=== PATIENT | female | born 1940 | race Caucasian/White ===

== ENCOUNTER 2017-08-16 10:50 | Inpatient (IN) | payer BC ==
[2017-08-16] MEDS ORDERED: ALPRAZolam 0.5 MG TABLET PO (14:15)
[2017-08-16 14:52] LABS: ADD MAN DIFF? NO
[2017-08-16 14:58] LABS: BASO # 0.1 x10^3/uL (0.0-0.2); BASO % 2 % (0-3); EOS # 0.1 x10^3/uL (0.0-0.7); EOS % 2 % (0-3); LYMPH # 1.5 x10^3/uL (1.0-4.8); LYMPH % 35 % (24-48); MEAN CORPUSCULAR HEMOGLOBIN 15 pg (25-35); MEAN CORPUSCULAR HGB CONC 28 g/dL (31-37); MEAN CORPUSCULAR VOLUME 54 fL (79-100); MONO # 0.3 x10^3/uL (0.0-1.1); MONO % 8 % (0-9); NEUT # 2.4 x10^3uL (1.8-7.7); NEUT % 54 % (31-73); PLATELET COUNT 374 x10^3/uL (140-400); RED BLOOD COUNT 3.48 x10^6/uL (3.50-5.40); RED CELL DISTRIBUTION WIDTH 21.6 % (11.5-14.5); WHITE BLOOD COUNT 4.4 x10^3/uL (4.0-11.0)
[2017-08-16] MEDS: OMEGA-3 FATTY ACIDS/FISH OIL 1,000 MG CAPSULE. PO (15:00)
[2017-08-16] MEDS: CALCIUM CARB/VIT D3 500/200 TABLET. PO (15:00)
[2017-08-16] MEDS: hydroCHLOROthiazide 12.5 MG CAPSULE PO (15:00)
[2017-08-16 15:02] LABS: HEMOGLOBIN 5.3 g/dL (12.0-15.5)
[2017-08-16 15:05] LABS: INR 1.1 (0.8-1.1); PROTHROMBIN TIME PATIENT 13.2 SEC (11.7-14.0)
[2017-08-16 15:07] LABS: RETIC COUNT 2.1 % (0.5-2.5)
[2017-08-16 15:15] LABS: ALBUMIN 4.2 g/dL (3.4-5.0); ALBUMIN/GLOBULIN RATIO 1.3 (1.0-1.7); ALK PHOS 47 U/L (46-116); ALT (SGPT) 18 U/L (14-59); ANION GAP 11 (6-14); AST (SGOT) 11 U/L (15-37); BLOOD UREA NITROGEN 26 mg/dL (7-20); BUN/CREATININE RATIO 17 (6-20); CALCIUM 9.2 mg/dL (8.5-10.1); CARBON DIOXIDE 26 mmol/L (21-32); CHLORIDE 105 mmol/L (98-107); CREATININE 1.5 mg/dL (0.6-1.0); GFR 33.9; GLUCOSE 90 mg/dL (70-99); POTASSIUM 3.6 mmol/L (3.5-5.1); SODIUM 142 mmol/L (136-145); TOTAL BILIRUBIN 0.6 mg/dL (0.2-1.0); TOTAL PROTEIN 7.4 g/dL (6.4-8.2)
[2017-08-16] MEDS: PANTOPRAZOLE 40 MG TABLET.DR. PO (16:20)
[2017-08-16 16:26] LABS: ANISOCYTOSIS MOD; HYPOCHROMIA MARKED; MICROCYTOSIS MARKED; OVALOCYTES FEW; PLT ESTIMATE ADEQUATE (ADEQUATE); POLYCHROMASIA SLIGHT
[2017-08-16 16:58] LABS: % SAT IRON 2 % (15-34); IRON,SERUM 8 ug/dL (50-170)
[2017-08-16 17:47] LABS: IMMEDIATE SPIN CROSSMATCH 1 2
[2017-08-16 17:51] LABS: VITAMIN-B12 897 pg/mL (247-911)
[2017-08-16 18:25] LABS: FOLATE > 24.00 ng/ml (3.2-20.0)
[2017-08-16] MEDS: LATANOPROST 0.005% OPHTH SOLUTION 2.5ML BOTTLE. OU (20:30)
[2017-08-16] MEDS: DORZOLAMIDE 2% OPHTH SOLUTION 10ML BOTTLE. OU (20:31)
[2017-08-16] MEDS: TIMOLOL 0.5% OPHTH SOLUTION 5ML BOTTLE. OU (20:31)
[2017-08-16] MEDS ORDERED: DORZOLAMIDE/TIMOLOL 2%/0.5% OPHTH SOLUTION 10ML BOTTLE. OU (21:00)
[2017-08-17 03:20] LABS: HEMATOCRIT 25.7 % (36.0-47.0); MEAN CORPUSCULAR HEMOGLOBIN 20 pg (25-35); MEAN CORPUSCULAR HGB CONC 31 g/dL (31-37); MEAN CORPUSCULAR VOLUME 62 fL (79-100); PLATELET COUNT 315 x10^3/uL (140-400); RED BLOOD COUNT 4.12 x10^6/uL (3.50-5.40); RED CELL DISTRIBUTION WIDTH 30.8 % (11.5-14.5); WHITE BLOOD COUNT 4.7 x10^3/uL (4.0-11.0)
[2017-08-17] MEDS: IV RINGERS,LACTATED 1000ML 1,000 ML IV (06:32)
[2017-08-17] MEDS ORDERED: MIDAZOLAM HCL/PF 2 MG/2 ML VIAL. IV (06:45)
[2017-08-17] MEDS ORDERED: LIDOCAINE 1% PF 2 ML VIAL. ID (06:45)
[2017-08-17] MEDS ORDERED: fentaNYL PF VIAL 100 MCG/2 ML VIAL IV ×2 (06:45)
[2017-08-17] MEDS ORDERED: LIDOCAINE 2% PF Vial for OR 5 ML VIAL. (07:49)
[2017-08-17] MEDS ORDERED: PROPOFOL 20 ML IV (07:49)
[2017-08-17] MEDS: DORZOLAMIDE 2% OPHTH SOLUTION 10ML BOTTLE. OU (09:00)
[2017-08-17] MEDS: hydroCHLOROthiazide 12.5 MG CAPSULE PO (09:00)
[2017-08-17] MEDS: CALCIUM CARB/VIT D3 500/200 TABLET. PO (09:00)
[2017-08-17] MEDS: OMEGA-3 FATTY ACIDS/FISH OIL 1,000 MG CAPSULE. PO (09:00)
[2017-08-17] MEDS: TIMOLOL 0.5% OPHTH SOLUTION 5ML BOTTLE. OU (09:00)
[2017-08-17] MEDS: PANTOPRAZOLE 40 MG TABLET.DR. PO (09:02)
[2017-08-17] MEDS: FLUCONAZOLE 100 MG TABLET. PO (09:06)
[2017-08-17] MEDS ORDERED: NON FORMULARY ITEM (Garlic 1,000 MG) PO (10:00)
[2017-08-17 12:19] LABS: HEMOGLOBIN 8.6 g/dL (12.0-15.5); MEAN CORPUSCULAR HEMOGLOBIN 19 pg (25-35); MEAN CORPUSCULAR HGB CONC 31 g/dL (31-37); MEAN CORPUSCULAR VOLUME 62 fL (79-100); PLATELET COUNT 366 x10^3/uL (140-400); RED BLOOD COUNT 4.48 x10^6/uL (3.50-5.40); RED CELL DISTRIBUTION WIDTH 30.2 % (11.5-14.5); WHITE BLOOD COUNT 5.7 x10^3/uL (4.0-11.0)
== END 2017-08-17 14:41 | disposition home or self-care (01) | DRG 812 ==
LOC: 5 NORTH 10:50
PROC: 0DB58ZX Excision of Esophagus, Via Natural or Artificial Opening Endoscopic, Diagnostic (ICD-10-PCS; principal; 2017-08-17 07:30)
PROC: 30233N1 Transfusion of Nonautologous Red Blood Cells into Peripheral Vein, Percutaneous Approach (ICD-10-PCS; 2017-08-17 08:00)
DX: D50.9 Iron deficiency anemia, unspecified (principal); B37.81 Candidal esophagitis; N18.3 Chronic kidney disease, stage 3 (moderate); H40.9 Unspecified glaucoma; I12.9 Hypertensive chronic kidney disease with stage 1 through stage 4 chronic kidney disease, or unspecified chronic kidney disease; Z79.82 Long term (current) use of aspirin; Z80.3 Family history of malignant neoplasm of breast; Z83.3 Family history of diabetes mellitus; Z90.710 Acquired absence of both cervix and uterus
CPT/HCPCS: 36415; 80053; 82607; 82746; 83540; 83550; 85025; 85027; 85045; 85610; 86850; 86900; 86901; 86920; J2704; J7120; P9016

== ENCOUNTER 2019-12-04 15:32 | Inpatient (IN) | payer BC ==
[~2019-12-04] VITALS: Ht 157.5 cm; Wt 77.6 kg
[~2019-12-04 15:32] MED LIST: CALC-45 PO; DORZ10DR7 EACHEYE; GARL10002 PO; HYDR12.575 PO; LATA2.5D3 EACHEYE; OMEG1CAP38 PO
[2019-12-04 16:00] VITALS: BP 176/87
[2019-12-04] MEDS ORDERED: GLUC1CAP18 PO (16:15)
[2019-12-04] MEDS ORDERED: ACET500T68 PO (16:17)
[2019-12-04] MEDS ORDERED: VIT1TABL34 PO (16:17)
[2019-12-04] MEDS ORDERED: MULT-505 PO (16:18)
[2019-12-04] MEDS ORDERED: ACETAMINOPHEN 500 MG TABLET PO PRN (18:00)
[2019-12-04 19:00] VITALS: BP 179/72
[2019-12-04 19:18] LABS: BASO # 0.1 x10^3/uL (0.0-0.2); BASO % 2 % (0-3); EOS # 0.2 x10^3/uL (0.0-0.7); EOS % 4 % (0-3); LYMPH # 1.4 x10^3/uL (1.0-4.8); LYMPH % 28 % (24-48); MEAN CORPUSCULAR HEMOGLOBIN 17 pg (25-35); MEAN CORPUSCULAR HGB CONC 29 g/dL (31-37); MEAN CORPUSCULAR VOLUME 60 fL (79-100); MONO # 0.5 x10^3/uL (0.0-1.1); MONO % 9 % (0-9); NEUT # 2.8 x10^3/uL (1.8-7.7); NEUT % 56 % (31-73); PLATELET COUNT 399 x10^3/uL (140-400); RED BLOOD COUNT 3.81 x10^6/uL (3.50-5.40); RED CELL DISTRIBUTION WIDTH 22.6 % (11.5-14.5)
[2019-12-04 19:25] LABS: PROTHROMBIN TIME PATIENT 12.6 SEC (11.7-14.0)
[2019-12-04 19:33] LABS: HEMOGLOBIN 6.6 g/dL (12.0-15.5)
[2019-12-04 19:52] LABS: PLT ESTIMATE ADEQUATE (ADEQUATE)
[2019-12-04 19:58] LABS: ANISOCYTOSIS MOD; HYPOCHROMIA MARKED; MICROCYTOSIS MARKED; POIKILOCYTOSIS SLIGHT
[2019-12-04 19:59] LABS: OVALOCYTES PRESENT; SCHISTOCYTES OCC
[2019-12-04] MEDS ORDERED: LATANOPROST 0.005% OPHTH SOLUTION 2.5ML BOTTLE. OU SCH (21:00)
[2019-12-04] MEDS: MULTIVITAMIN I-VITE TABLET. PO SCH (21:00)
[2019-12-04] MEDS: TIMOLOL 0.5% OPHTH SOLUTION 5ML BOTTLE. OU SCH (21:00)
[2019-12-04] MEDS: DORZOLAMIDE 2% OPHTH SOLUTION 10ML BOTTLE. OU SCH (21:00)
[2019-12-04 22:03] VITALS: BP 140/60
[2019-12-04 22:18] VITALS: BP 145/60
[2019-12-04 23:00] VITALS: BP 156/55
[2019-12-04 23:18] VITALS: BP 143/69
[2019-12-05] VITALS (15 sets, daily range): BP systolic 133–176; BP diastolic 49–95
--- NOTE | 2019-12-05 00:39 | NUR ---
Pt tolerated 1 unit of blood. No rxn noted.
[2019-12-05 04:59] LABS: HEMATOCRIT 24.5 % (36.0-47.0); HEMOGLOBIN 7.3 g/dL (12.0-15.5); RED BLOOD COUNT 3.85 x10^6/uL (3.50-5.40); RED CELL DISTRIBUTION WIDTH 25.9 % (11.5-14.5); WHITE BLOOD COUNT 4.7 x10^3/uL (4.0-11.0)
--- NOTE | 2019-12-05 07:49 | PDOC ---
Provider Note Provider Note hb up 7.3 after 1 u- source of loss ?, 2018 was on asa and anemia resolved but has recurred- gi consult to plan egd as op, 1 more u prbc, then can dc and follow on iron Justifications for Admission Other Justification BELEN ACOSTA MD Dec 05, 2019 07:49
[2019-12-05] MEDS ORDERED: NON FORMULARY ITEM (Gluc Hcl/Csa/Coll Hy/Hyalur Ac (Glucosamine Chondroitin Cap) 1 EACH) PO SCH (09:00)
[2019-12-05] MEDS: MULTIVITAMIN I-VITE TABLET. PO SCH (09:00)
[2019-12-05] MEDS ORDERED: hydroCHLOROthiazide 12.5 MG CAPSULE PO SCH (09:00)
[2019-12-05] MEDS ORDERED: OMEGA-3 FATTY ACIDS/FISH OIL 1,000 MG CAPSULE. PO SCH (09:00)
[2019-12-05] MEDS ORDERED: MULTIVITAMIN with MINERAL TABLET. PO SCH (09:00)
--- NOTE | 2019-12-05 09:26 | PDOC2 ---
GI CONSULT Date of Service: DATE: 12/05/19 TIME: 09:26 Reason For Consult: recurring anemia HPI: HPI: Pleasant 79 y/o female directly admitted by Dr. Echeverria. Has been feeling fine but noted to be pale at office visit. H/o ADDISON - advised to stop iron awhile ago, now anemic requiring transfusion w/o obvious bleeding. 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 Colonoscopy 2018: diverticulosis. Ferritin low this time. B12 okay in 2018. Denies reflux, dysphagia, n/v, abd pain, diarrhea, constipation, hematemesis, hematochezia, and melena. Has lost 6 pounds due to being very active at home - care for her , works in the yard, etc. S/p cholecystectomy. Hepatic steatosis on past imaging. No pancreas or PUD history. No NSAIDs. Says the plan is to resume iron and for another transfusion and then to go home - she wants to go because she needs to get back to her . Ate breakfast this morning. PMH: PMH: HTN, glaucoma, arthritis FH: Family History: Cancer (breast), DM, Other Social History: Smoke: Quit ([place], [place]) ALCOHOL: none ROS: GEN: Denies fevers, chills, sweats HEENT: Denies blurred vision, sore throat CV: Denies chest pain RESP: Denies shortness of air, cough GI: Per HPI : Denies hematuria, dysuria ENDO: +weight loss NEURO: Denies confusion, dizziness MSK: Denies weakness, joint pain/swelling SKIN: Denies jaundice, pruritus Vitals: Vitals: Vital Signs Date Time Temp Pulse Resp B/P (MAP) Pulse Ox O2 Delivery O2 Flow Rate FiO2 12/05/19 07:00 98.0 77 17 147/68 (94) 98 Room Air 98.0 Labs: Labs: Laboratory Tests Test 12/04/19 18:35 12/05/19 04:05 White Blood Count 5.0 x10^3/uL (4.0-11.0) 4.7 x10^3/uL (4.0-11.0) Red Blood Count 3.81 x10^6/uL (3.50-5.40) 3.85 x10^6/uL (3.50-5.40) Hemoglobin 6.6 g/dL (12.0-15.5) 7.3 g/dL (12.0-15.5) Hematocrit 23.0 % (36.0-47.0) 24.5 % (36.0-47.0) Mean Corpuscular Volume 60 fL (79-100) 64 fL (79-100) Mean Corpuscular Hemoglobin 17 pg (25-35) 19 pg (25-35) Mean Corpuscular Hemoglobin Concent 29 g/dL (31-37) 30 g/dL (31-37) Red Cell Distribution Width 22.6 % (11.5-14.5) 25.9 % (11.5-14.5) Platelet Count 399 x10^3/uL (140-400) 326 x10^3/uL (140-400) Neutrophils (%) (Auto) 56 % (31-73) Lymphocytes (%) (Auto) 28 % (24-48) Monocytes (%) (Auto) 9 % (0-9) Eosinophils (%) (Auto) 4 % (0-3) Basophils (%) (Auto) 2 % (0-3) Neutrophils # (Auto) 2.8 x10^3/uL (1.8-7.7) Lymphocytes # (Auto) 1.4 x10^3/uL (1.0-4.8) Monocytes # (Auto) 0.5 x10^3/uL (0.0-1.1) Eosinophils # (Auto) 0.2 x10^3/uL (0.0-0.7) Basophils # (Auto) 0.1 x10^3/uL (0.0-0.2) Platelet Estimate Adequate (ADEQUATE) Hypochromasia Marked Poikilocytosis Slight Anisocytosis Mod Microcytosis Marked Ovalocytes Present Schistocytes Occ Prothrombin Time 12.6 SEC (11.7-14.0) Prothromb Time International Ratio 1.0 (0.8-1.1) Ferritin 5 ng/mL (8-252) Allergies: Coded Allergies: aspirin (Verified Allergy, Unknown, bleed, 12/04/19) Imaging: Imaging: - PE: GEN: NAD HEENT: Atraumatic, PERRL LUNGS: CTAB HEART: RRR ABD: NABS, S/ND/NT EXTREMITY: No edema SKIN: No rashes, no jaundice NEURO/PSYCH: A & O 3 A/P: A/P: Microcytic anemia - h/o ADDISON CRC screen - UTD Diverticulosis S/p cholecystectomy Hepatic steatosis -- DC per primary on PO iron, monitor labs as outpt. If anemia persists, consider repeating EGD and colonoscopy as outpt w/ [facility]. Seems might need iron intermediate designer. WILLIAM CHUNG Dec 05, 2019 09:26
--- NOTE | 2019-12-05 09:28 | HP ---
ADMIT DATE: 12/04/2019 CHIEF COMPLAINT: Microcytic anemia. HISTORY OF PRESENT ILLNESS: A ____[id number] white female seen routinely the day prior to admission for hypertension followup. She had anemia, microscopic in nature 2 years prior and upper and lower endoscopy revealed no lesions and she was transfused and taken off aspirin and since that time her hemoglobins remained stable with no further problem. Last hemoglobin was approximately 8-9 months ago. Office evaluation showed mild pallor. Her hemoglobin subsequently was 6.8 with a low MCV. She has had no melena, hematochezia, weight loss, odynophagia, dysphagia, aspirin use or any other GI type symptoms. EGD revealed candidiasis in 2018. Colonoscopy was unrevealing and no source of bleeding was ultimately found. PAST MEDICAL HISTORY: She takes hydrochlorothiazide as her only medicine. She does not take aspirin in any form that she is aware of. ALLERGIES: No allergies are known. SURGICAL HISTORY: No surgical in the past. SOCIAL HISTORY: , nonsmoker, nondrinker, physically inactive. FAMILY HISTORY: Unremarkable. REVIEW OF SYSTEMS: No other specific complaints. OBJECTIVE: ENT: Mild pallor, otherwise unremarkable. NECK: No masses, nodes or thyroid enlargement. LUNGS: Clear. CARDIOVASCULAR: Regular rate. Grade 2 systolic flow murmur, rate is about 80-90. ABDOMEN: Soft, benign and nontender. RECTAL: Deferred. EXTREMITIES: Mild pallor of the nailbeds. No edema. No joint or skin lesions. NEUROLOGIC: Physiologic. ASSESSMENT: Recurrence of microcytic anemia, etiology undetermined. 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 She has not been taking aspirin. PLAN: Admit for transfusion, GI consultation for probable repeat upper endoscopy likely as an outpatient. We will check her labs to make sure there is no evidence of hemolysis which was not present in the past and B12 levels were normal. BELEN ACOSTA MD DR: BRITTANIE/cherise JOB#: [id number] / [id number]
[2019-12-05] MEDS ORDERED: NON FORMULARY ITEM (Garlic 1,000 MG) PO SCH (10:00)
[2019-12-05] MEDS: DORZOLAMIDE 2% OPHTH SOLUTION 10ML BOTTLE. OU SCH (10:18)
[2019-12-05] MEDS: TIMOLOL 0.5% OPHTH SOLUTION 5ML BOTTLE. OU SCH (10:19)
[2019-12-05] MEDS ORDERED: FERROUS SULFATE 325 MG TABLET. PO SCH (10:30)
--- NOTE | 2019-12-05 15:20 | NUR ---
Pt received 1 unit of blood, tolerated well. IV and telemonitor discontinued patient was escorted out via wheelchair to vehicle by this RN.
--- NOTE | 2019-12-05 17:02 | NUR ---
SW following. Spoke with RN and reviewed chart. Pt from home with spouse. Pt on room air and oral medications. Pt had blood transfusion today per low Hgb. Possible discharge tomorrow, 12/05 to home self-care. No SW needs at discharge per RN.
--- NOTE | 2019-12-05 21:12 | DS ---
DATE OF DISCHARGE: 12/05/2019 HOSPITAL SUMMARY: The patient was admitted the day after laboratory studies in the office showed her hemoglobin to be around 6.8. She has had prior anemia 1-2 years prior, but no recent symptoms. She has mild tachycardia, but no other physical exam findings. Hemoglobin on admission was 6.6, after 1 unit of packed cells it was 7.3 and the chemistry profile and INR were normal. She was given 2 units of packed red blood cells and was feeling physically better and a slower heart rate at the time of discharge. She was seen by Dr. Gillette's group. Consultation and plans an upper endoscopy as an outpatient if she fails to keep her hemoglobin up with the addition of oral iron therapy as she is on no antiplatelet therapy at present. We will see her in 1 week in followup for hemoglobin. FINAL DIAGNOSIS: Recurrent microcytic iron deficiency anemia, etiology undetermined. OPERATIONS, PROCEDURES, COMPLICATIONS: None. CONSULTATIONS: Dr. Gillette. DISPOSITION: Continue current meds. No aspirin. She will start iron tablets daily and office followup with Dr. Echeverria in 1 week. PROGNOSIS: Guarded. BELEN ECHEVERRIA MD DR: BRITTANIE/cherise JOB#: [id number] / [id number]
== END 2019-12-05 15:20 | disposition home or self-care (01) | DRG 812 ==
LOC: 5 NORTH 15:32
PROVIDERS: ADMIT Family Medicine; ATTEND Family Medicine
PROC: 30233N1 Transfusion of Nonautologous Red Blood Cells into Peripheral Vein, Percutaneous Approach (ICD-10-PCS; principal; 2019-12-04)
DX: D50.9 Iron deficiency anemia, unspecified (principal); I10 Essential (primary) hypertension; M19.90 Unspecified osteoarthritis, unspecified site; H40.9 Unspecified glaucoma; Z88.6 Allergy status to analgesic agent; Z90.49 Acquired absence of other specified parts of digestive tract; Z83.3 Family history of diabetes mellitus; Z80.3 Family history of malignant neoplasm of breast
CPT/HCPCS: 36415; 82728; 85025; 85027; 85610; 86850; 86900; 86901; 86920; P9016; G0378